=== PATIENT | female | born 1950 | race Two or more races ===

== ENCOUNTER 2019-06-28 09:01 | Outpatient (CLI) | payer OTHER | END 2019-06-28 09:05 | disposition home or self-care (01) | LOC: SONOGRAMA 09:01 | DX: E04.1 Nontoxic single thyroid nodule (principal) ==

== ENCOUNTER 2022-06-07 10:20 | Outpatient (CLI) | payer OTHER | END 2022-06-07 11:00 | disposition home or self-care (01) | LOC: SONOGRAMA 10:20 | PROVIDERS: ATTEND Pathology Anatomic Pathology & Clinical Pathology | DX: E04.2 Nontoxic multinodular goiter (principal) ==